=== PATIENT | female | born 1960 ===

== ENCOUNTER → 2020-01-20 07:48 | Outpatient (CLI) | payer OTHER, SELFPAY ==
--- NOTE | 2020-01-20 | DI.NM.S_ITS ---
PROCEDURE: NM JOAQUINA PERF SPECT REST & STR Rest and exercise myocardial perfusion SPECT with gated imaging and ejection fraction RADIOPHARMACEUTICAL: 25.8 mCi Tc-99m sestamibi IV at rest and 26.9 mCi Tc-99m sestamibi IV at peak exercise. A two day-protocol was performed. INDICATIONS: Chest pain, unspecified TECHNIQUE: Radiopharmaceutical was injected at peak stress test, and also at rest. SPECT images were obtained. SPECT myocardial perfusion images were displayed in short axis, horizontal long axis, and vertical long axis views. Gated images were reviewed using [employer] software. COMPARISON: None. CARDIAC STRESS: A standard Spenser treadmill exercise tolerance test was performed by the patient under the supervision of an attending staff. The patient exercised for 6 minutes and 25 seconds; functional aerobic impairment (MELISSA) is +15%. Hemodynamic data: There is normal heart rate response to exercise stress. Patient achieved 91% of maximum predicted heart rate at peak exercise. There is hypertensive response to exercise (resting BP 150/70mmHg, max BP 256/60mmHg). Symptoms: Patient denied chest pain during exercise. EKG: No diagnostic EKG changes of ischemia; occasional PVCs present. FINDINGS: Raw data: There is good myocardial labeling by radiotracer. No significant motion artifacts. Fafs-uj-wgkhq ratio is 0.24 (normal is less than 0.38 for sestamibi tracer, and less than 0.50 for thallium tracer). Left ventricle function: Gated images demonstrate normal left ventricle wall thickening. No segmental wall motion abnormality. No transient ischemic dilation; TID is 0.90 (normal less than 1.3). The left ventricle resting end-diastolic volume is 108 mL. Left ventricle stress ejection fraction is 77%; normal values are above 45%. Myocardial perfusion: There is normal distribution of activity in the left and right ventricular myocardium. No fixed or reversible perfusion defects. IMPRESSION: Low risk, normal treadmill nuclear stress test. Hypertensive response to exercise. 1) No perfusion evidence of ischemia or infarction. 2) Normal left ventricular size, wall motion, and systolic function (EF post stress 77%). 3) No ECG evidence of ischemia. 4) No angina during the study. Dyspnea at peak exercise. 5) Hypertensive response to exercise (resting BP 150/70mmHg, max BP 256/60mmHg). 6) Reduced exercise tolerance (7.0 METs, MELISSA +15%). Target heart rate achieved. 6) No prior nuclear stress test available for comparison. Recommend more aggressive BP management. Dictated by: He Lechuga MD on 01/21/2020 at 14:15 Approved by: He Lechuga MD on 01/21/2020 at 14:20
== END ==
PROVIDERS: Referring Provider Physician Assistant Medical; Visit Provider Physician Assistant Medical
DX: R07.9 Chest pain, unspecified (principal)
CPT/HCPCS: 78452; 93017; A9502